=== PATIENT | female | born 1950 | race Caucasian/White ===

== ENCOUNTER 2019-04-03 10:54 | Day surgery (SDC) | payer MEDICARE, MEDICAID ==
[2019-04-01 12:46] LABS: BASOPHILS % (AUTO) 0.4 % (0-1); EOSINOPHILS # (AUTO) 0.1 X10'3 (0-0.9); EOSINOPHILS % (AUTO) 0.9 % (0-6); HEMATOCRIT 39.6 % (35.0-45.0); HEMOGLOBIN 12.7 g/dl (12.0-16.0); LYMPHOCYTES # (AUTO) 1.9 X10'3 (1.1-4.8); LYMPHOCYTES % (AUTO) 30.7 % (21-51); MEAN CORPUSCULAR HGB CONC 32.1 g/dL (33.0-36.5); MEAN CORPUSCULAR VOLUME 87.1 FL (78-98); MEAN PLATELET VOLUME 8.3 FL (7.4-10.4); MONOCYTES # (AUTO) 0.4 X10'3 (0-0.9); MONOCYTES % (AUTO) 7.2 % (2-12); NEUTROPHILS # (AUTO) 3.7 X10'3 (1.8-7.7); NEUTROPHILS % (AUTO) 60.8 % (42-75); PLATELET COUNT 264 X10'3 (140-440); RED BLOOD COUNT 4.54 X10'6 (4.20-5.60); RED CELL DISTRIBUTION WIDTH 17.5 % (11.5-14.5); WHITE BLOOD COUNT 6.1 X10'3 (4.5-11.0)
[2019-04-01 13:08] LABS: PARTIAL THROMBOPLASTIN TIME 31 SECONDS (22-32)
[2019-04-01 13:50] LABS: ALANINE AMINOTRANSFERASE 12 U/L (12-78); ALBUMIN 3.5 G/DL (3.4-5.0); ALBUMIN/GLOBULIN RATIO 0.8 (1.1-1.5); ALKALINE PHOSPHATASE 69 IU/L (46-116); ANION GAP 7 (8-16); ASPARTATE AMINO TRANSFERASE 16 U/L (10-37); BILIRUBIN,TOTAL 0.3 MG/DL (0.1-1.0); BLOOD UREA NITROGEN 20 MG/DL (7-18); BUN/CREATININE RATIO 28.2 (6.6-38.0); CALCIUM 9.2 MG/DL (8.5-10.1); CHLORIDE 101 MMOL/L (99-107); CREATININE 0.71 MG/DL (0.40-0.90); GLUCOSE 131 MG/DL (70-104); POTASSIUM 3.6 MMOL/L (3.5-5.1); SODIUM 139 MMOL/L (135-145); TOTAL CARBON DIOXIDE 30.8 MMOL/L (24-32); TOTAL PROTEIN 7.8 G/DL (6.4-8.2); eGFR 82 ML/MIN
[~2019-04-03] VITALS: Ht 165.1 cm; Wt 78.4 kg
[2019-04-03] VITALS (12 sets, daily range): BP systolic 112–154; BP diastolic 47–75
[2019-04-03] MEDS ORDERED: diphenhydrAMINE 25mg capsule PO PRN (11:15)
[2019-04-03] MEDS ORDERED: LORazepam 0.5 MG tablet PO PRN (11:15)
[2019-04-03] MEDS ORDERED: normal saline 1,000 ML IV SCH (11:15)
[2019-04-03] MEDS ORDERED: nitroGLYCERIN 0.4mg SUBLingual tab SL PRN (11:15)
[2019-04-03] MEDS ORDERED: DILT240C90 PO (11:34)
[2019-04-03] MEDS ORDERED: SYN0.088T PO (11:34)
[2019-04-03] MEDS ORDERED: CLOP75TA15 PO (11:34)
[2019-04-03] MEDS ORDERED: DIVA500T2 PO (11:34)
[2019-04-03] MEDS ORDERED: OMEP40CA13 PO (11:34)
[2019-04-03] MEDS ORDERED: FURO-149 PO (11:34)
[2019-04-03] MEDS ORDERED: ATOR20TA PO (11:34)
[2019-04-03] MEDS ORDERED: APIX5TAB3 PO (11:34)
[2019-04-03] MEDS ORDERED: DILT120C51 PO (11:34)
[2019-04-03] MEDS ORDERED: iohexol 350 MG/ML 50ML vial IV ONE (13:10)
[2019-04-03] MEDS ORDERED: iohexol 350MG/ML 100ml bottle IV ONE (13:10)
[2019-04-03] MEDS ORDERED: midazolam 2 mg/2 ml injection ONE (13:10)
[2019-04-03] MEDS ORDERED: fentaNYL/PF 50MCG/1 ML 2ML syringe ONE (13:10)
[2019-04-03] MEDS ORDERED: LIDOcaine 1% (10mg/ml)w/preservative injection 20ml MDV ONE (13:10)
[2019-04-03] MEDS ORDERED: HYDROcodone/acetaminophen 5mg/325mg tablet PO PRN (14:50)
[2019-04-03] MEDS ORDERED: ondansetron/PF 4mg/2ml inj IV PRN (14:50)
[2019-04-03] MEDS ORDERED: HYDROcodone/acetaminophen 10/325mg tab PO PRN (14:50)
[2019-04-03] MEDS ORDERED: proCHLORperazine 10 MG/2 ml inj IV PRN (14:50)
[2019-04-03] MEDS ORDERED: normal saline 1000ml 1,000 ML IV SCH (14:50)
[2019-04-03] MEDS ORDERED: OXAZEpam 15mg capsule PO PRN (14:50)
[2019-04-03] MEDS ORDERED: heparin sodium, porcine/PF 100unit/ml 5ML syringe IV ONE (19:15)
== END 2019-04-03 20:05 | disposition home or self-care (01) ==
LOC: SSTAY O 10:54
PROVIDERS: ATTEND Internal Medicine Cardiovascular Disease
DX: R94.39 Abnormal result of other cardiovascular function study (principal); I25.10 Atherosclerotic heart disease of native coronary artery without angina pectoris; I10 Essential (primary) hypertension; I48.20 Chronic atrial fibrillation, unspecified; Z88.0 Allergy status to penicillin; Z79.899 Other long term (current) drug therapy
CPT/HCPCS: 36415; 71046; 80053; 85025; 85610; 85730; 93458; 99152; C1769; J1642; J1644; J2001; J2250; J3010; J7030; Q0163; Q9967; 99153; A4620; A6258; C1760

== ENCOUNTER 2024-06-08 15:56 | Inpatient (IN) | payer BC, MEDICAID ==
[~2024-06-08] VITALS: Ht 165.1 cm; Wt 62.3 kg
[~2024-06-08 15:56] MED LIST: APIX5TAB3 PO; ATOR20TA PO; CLOP75TA15 PO; DILT120C51 PO; DILT240C90 PO; DIVA500T2 PO; FURO-149 PO; OMEP40CA21 PO; SYN0.088T PO
[2024-06-08 16:20] LABS: BASOPHILS % (AUTO) 0.3 % (0-1); EOSINOPHILS % (AUTO) 0.2 % (0-6); HEMATOCRIT 42.3 % (35.0-45.0); LYMPHOCYTES # (AUTO) 1.9 X10'3 (1.1-4.8); MEAN CORPUSCULAR HGB CONC 32.8 g/dL (33.0-36.5); MEAN PLATELET VOLUME 10.1 FL (7.4-10.4); MONOCYTES # (AUTO) 0.4 X10'3 (0-0.9); RED BLOOD COUNT 4.51 X10'6 (4.20-5.60)
[2024-06-08 16:22] LABS: HEMOGLOBIN 13.8 g/dl (12.0-16.0); LYMPHOCYTES % (AUTO) 37.5 % (21-51); MEAN CORPUSCULAR HEMOGLOBIN 30.7 PG (27.0-31.0); MEAN CORPUSCULAR VOLUME 93.8 FL (78-98); MONOCYTES % (AUTO) 7.7 % (2-12); NEUTROPHILS # (AUTO) 2.7 X10'3 (1.8-7.7); NEUTROPHILS % (AUTO) 54.3 % (42-75); PLATELET COUNT 150 X10'3 (140-440)
[2024-06-08 16:34] LABS: ALANINE AMINOTRANSFERASE 48 U/L (12-78); ALBUMIN/GLOBULIN RATIO 0.8 (1.1-1.5); ALKALINE PHOSPHATASE 101 IU/L (46-116); ANION GAP 7 (8-16); ASPARTATE AMINO TRANSFERASE 41 U/L (10-37); BILIRUBIN,TOTAL 0.5 MG/DL (0.1-1.0); BLOOD UREA NITROGEN 33 MG/DL (7-18); BUN/CREATININE RATIO 30.3 (10.0-20.0); CALCIUM 8.7 MG/DL (8.5-10.1); CHLORIDE 103 MMOL/L (99-107); CREATININE 1.09 MG/DL (0.40-0.90); GLUCOSE 151 MG/DL (70-104); POTASSIUM 4.3 MMOL/L (3.5-5.1); SODIUM 139 MMOL/L (135-145); TOTAL CARBON DIOXIDE 28.7 MMOL/L (24-32); TOTAL PROTEIN 6.9 G/DL (6.4-8.2); eCRCL 40 ML/MIN; eGFR 49 ML/MIN
[2024-06-08 16:42] LABS: PRO BRAIN NATRIURETIC PEPTIDE 11427 PG/ML (0-450)
[2024-06-08 16:54] LABS: ANISOCYTOSIS 2+; PLATELET ESTIMATE NORMAL
[2024-06-08 16:55] LABS: LARGE PLATELETS FEW
[2024-06-08] MEDS: diltiazem-NS 100mg/100ml 100 ML IV SCH (18:15)
[2024-06-08] MEDS: diltiazem 5mg/ml 5ml inj. IV ONE (19:02)
[2024-06-08] MEDS ORDERED: mag hydrox/Alum hydrox/simeth 30ml oral suspension PO PRN (20:15)
[2024-06-08] MEDS ORDERED: magnesium Cl slow-release 64mg tablet PO PRN (20:15)
[2024-06-08] MEDS ORDERED: acetaminophen 325mg tablet PO PRN ×2 (20:15)
[2024-06-08] MEDS ORDERED: potassium Cl 20 mEq SR tablet PO PRN ×2 (20:15)
[2024-06-08] MEDS ORDERED: magnesium sulf-water 4G/100mL 100 ML IV PRN (20:15)
[2024-06-08] MEDS ORDERED: magnesium hydroxide 30ml (MOM) UD suspension PO PRN (20:15)
[2024-06-08] MEDS ORDERED: potassium Cl 40MEQ/1/2NS 520ml 520 ML IV PRN (20:15)
[2024-06-08] MEDS ORDERED: ondansetron/PF 4mg/2ml inj IV PRN (20:15)
[2024-06-08] MEDS ORDERED: magnesium sulf-water 2g/50mL 50 ML IV PRN (20:15)
[2024-06-08] MEDS ORDERED: morphine 2 MG/ML inj. syringe IV PRN (20:15)
[2024-06-08] MEDS: PERFLUTREN PROTEIN-A MICROSPHR (Optison) 0.22 MG/ML 3ML VIAL IV ONE (20:15)
[2024-06-08 20:49] LABS: HEMOGLOBIN A1C 5.9 % (4.5-6.2)
[2024-06-08] MEDS: mag hydrox/Alum hydrox/simeth 30ml oral suspension PO ONE (21:15)
[2024-06-08] MEDS: metoprolol succinate 25mg (24-HOUR) SR. Tablet PO SCH (21:17)
[2024-06-08] MEDS: furosemide 10 MG/1 ML 10ml inj IV SCH (21:19)
[2024-06-08] MEDS: K and/or MAG REPLACEMENT MC SCH (21:28)
[2024-06-08] MEDS: docusate sod 100mg capsule PO SCH (21:28)
[2024-06-09] MEDS: heparin, porcine 5000 units/ml vial SQ SCH (00:41)
[2024-06-09] MEDS: clopidogrel 75mg tablet PO SCH (02:02)
[2024-06-09] MEDS: normal saline 500ml IV soln 500 ML IV ONE (02:04)
[2024-06-09 02:35] LABS: BILIRUBIN,URINE NEGATIVE (Neg); CLARITY,URINE SLIGHTLY CLOUDY (Clear); COLOR,URINE YELLOW (Yellow); GLUCOSE, URINE NEGATIVE (Neg); KETONES,URINE NEGATIVE (Neg); LEUKOCYTE ESTERASE ,URINE TRACE (Neg); NITRITES, URINE NEGATIVE (Neg); OCCULT BLOOD,URINE NEGATIVE (Neg); PROTEIN,URINE TRACE mg/dl (Neg); UROBILINOGEN,URINE 0.2 E.U/dL (0.2-1.0)
[2024-06-09 02:42] LABS: UA COLLECTION TYPE CLN CATCH MIDSTREAM
[2024-06-09 02:43] LABS: BACTERIA,URINE 2+ /HPF (Neg); RBC,URINE NONE SEEN /HPF (0-2); SQUAMOUS EPITHELIAL CELL,UR FEW /LPF (FEW); WBC,URINE 0-4 /HPF (0-4)
[2024-06-09 02:57] LABS: UA EOSINOPHILS NO EOS /HPF
[2024-06-09] MEDS: morphine 2 MG/ML inj. syringe IV PRN (03:08)
[2024-06-09 03:27] LABS: CHOL/HDL RATIO 16.5 (0.00-4.99); CHOLESTEROL 132 MG/DL (0-200); HDL CHOLESTEROL 8 MG/DL (35-60); POTASSIUM 5.3 MMOL/L (3.5-5.1); TRIGLYCERIDES 121 MG/DL (20-135)
[2024-06-09 04:10] LABS: LDL CHOLESTEROL 55 MG/DL (50-100); MAGNESIUM 1.9 MG/DL (1.5-2.4)
[2024-06-09 06:00] VITALS: BP 111/68; PULSE 113; RESP 17; TEMP 97.6; O2SAT 96
[2024-06-09] MEDS: atorvastatin 20mg tablet PO SCH (08:38)
[2024-06-09 11:00] VITALS: BP 101/60; PULSE 103; RESP 14; TEMP 97.6; O2SAT 94
[2024-06-09] MEDS ORDERED: aminophylline 500mg/20ml vial IV PRN (11:25)
[2024-06-09] MEDS ORDERED: nitroGLYCERIN 0.4mg SUBLingual tab SL PRN (11:25)
[2024-06-09] MEDS ORDERED: metoprolol tartrate 1mg/ml inj IV PRN (11:25)
[2024-06-09 15:00] VITALS: BP 114/63; PULSE 104; RESP 17; TEMP 97.8; O2SAT 96
[2024-06-09 18:00] VITALS: BP 115/72; PULSE 106; RESP 18; TEMP 97.5; O2SAT 96
[2024-06-09] MEDS ORDERED: EMPA10TA PO (19:25)
[2024-06-09] MEDS ORDERED: CARV-50 PO (19:29)
[2024-06-09] MEDS: furosemide 10 MG/1 ML 10ml inj IV SCH (19:41)
[2024-06-09] MEDS: apixaban 5mg tablet PO SCH (19:42)
[2024-06-09] MEDS: sacubitril/valsartan 24mg-26mg tablet PO SCH (19:42)
[2024-06-09 20:00] VITALS: RESP 18; O2SAT 91
[2024-06-09 22:00] VITALS: BP 115/79; PULSE 103; RESP 16; TEMP 97.7; O2SAT 91
[2024-06-10] VITALS (15 sets, daily range): BP systolic 90–167; BP diastolic 56–80; PULSE 70–123; RESP 14–22; TEMP 96.9–97.8; O2SAT 88–98
[2024-06-10 06:53] LABS: BASOPHILS % (AUTO) 0.4 % (0-1); EOSINOPHILS % (AUTO) 0.5 % (0-6); HEMATOCRIT 42.3 % (35.0-45.0); HEMOGLOBIN 13.8 g/dl (12.0-16.0); LYMPHOCYTES # (AUTO) 1.8 X10'3 (1.1-4.8); LYMPHOCYTES % (AUTO) 43.1 % (21-51); MEAN CORPUSCULAR HEMOGLOBIN 30.5 PG (27.0-31.0); MEAN CORPUSCULAR HGB CONC 32.6 g/dL (33.0-36.5); MEAN CORPUSCULAR VOLUME 93.4 FL (78-98); MEAN PLATELET VOLUME 10.2 FL (7.4-10.4); MONOCYTES # (AUTO) 0.5 X10'3 (0-0.9); MONOCYTES % (AUTO) 10.8 % (2-12); NEUTROPHILS # (AUTO) 1.9 X10'3 (1.8-7.7); NEUTROPHILS % (AUTO) 45.2 % (42-75); PLATELET COUNT 127 X10'3 (140-440); RED BLOOD COUNT 4.53 X10'6 (4.20-5.60); RED CELL DISTRIBUTION WIDTH 20.1 % (11.5-14.5); WHITE BLOOD COUNT 4.2 X10'3 (4.5-11.0)
[2024-06-10 07:14] LABS: ALANINE AMINOTRANSFERASE 36 U/L (12-78); ALBUMIN 2.5 G/DL (3.4-5.0); ALBUMIN/GLOBULIN RATIO 0.7 (1.1-1.5); ALKALINE PHOSPHATASE 84 IU/L (46-116); ANION GAP 6 (8-16); ASPARTATE AMINO TRANSFERASE 37 U/L (10-37); BILIRUBIN,TOTAL 0.6 MG/DL (0.1-1.0); BLOOD UREA NITROGEN 31 MG/DL (7-18); BUN/CREATININE RATIO 27.7 (10.0-20.0); CALCIUM 8.2 MG/DL (8.5-10.1); CHLORIDE 102 MMOL/L (99-107); CREATININE 1.12 MG/DL (0.40-0.90); GLUCOSE 95 MG/DL (70-104); MAGNESIUM 1.7 MG/DL (1.5-2.4); POTASSIUM 3.9 MMOL/L (3.5-5.1); SODIUM 139 MMOL/L (135-145); TOTAL CARBON DIOXIDE 31.2 MMOL/L (24-32); TOTAL PROTEIN 6.1 G/DL (6.4-8.2); eCRCL 39 ML/MIN; eGFR 47 ML/MIN
[2024-06-10] MEDS: EMPAGLIFLOZIN 10 MG TABLET PO SCH (08:47)
[2024-06-10] MEDS: regadenoson 0.4mg/5ml syringe IV PRN (11:02)
[2024-06-10] MEDS ORDERED: SACU1TAB PO (16:17)
[2024-06-10] MEDS ORDERED: METO50TA7 PO (16:17)
[2024-06-11 02:00] VITALS: BP 97/67; PULSE 126; RESP 18; TEMP 98; O2SAT 96
[2024-06-11 06:00] VITALS: BP 112/67; PULSE 80; RESP 13; TEMP 98.6; O2SAT 98
[2024-06-11 07:16] LABS: MONOCYTES # (AUTO) 0.7 X10'3 (0-0.9); NEUTROPHILS # (AUTO) 2.4 X10'3 (1.8-7.7); RED BLOOD COUNT 4.65 X10'6 (4.20-5.60)
[2024-06-11 07:20] LABS: BASOPHILS % (AUTO) 0.4 % (0-1); EOSINOPHILS % (AUTO) 0.7 % (0-6); HEMATOCRIT 43.3 % (35.0-45.0); HEMOGLOBIN 14.2 g/dl (12.0-16.0); LYMPHOCYTES # (AUTO) 1.9 X10'3 (1.1-4.8); LYMPHOCYTES % (AUTO) 38.5 % (21-51); MEAN CORPUSCULAR HEMOGLOBIN 30.6 PG (27.0-31.0); MEAN CORPUSCULAR HGB CONC 32.9 g/dL (33.0-36.5); MEAN CORPUSCULAR VOLUME 93.1 FL (78-98); MEAN PLATELET VOLUME 9.9 FL (7.4-10.4); NEUTROPHILS % (AUTO) 47.4 % (42-75); PLATELET COUNT 158 X10'3 (140-440); RED CELL DISTRIBUTION WIDTH 19.8 % (11.5-14.5)
[2024-06-11 08:00] VITALS: RESP 13; O2SAT 98
[2024-06-11] MEDS: metoprolol succinate 25mg (24-HOUR) SR. Tablet PO SCH (08:21)
[2024-06-11 08:44] LABS: ALANINE AMINOTRANSFERASE 31 U/L (12-78); ALBUMIN 2.6 G/DL (3.4-5.0); ALBUMIN/GLOBULIN RATIO 0.8 (1.1-1.5); ALKALINE PHOSPHATASE 83 IU/L (46-116); ANION GAP 10 (8-16); ASPARTATE AMINO TRANSFERASE 25 U/L (10-37); BILIRUBIN,TOTAL 0.5 MG/DL (0.1-1.0); BLOOD UREA NITROGEN 32 MG/DL (7-18); BUN/CREATININE RATIO 34.4 (10.0-20.0); CALCIUM 8.7 MG/DL (8.5-10.1); CHLORIDE 105 MMOL/L (99-107); CREATININE 0.93 MG/DL (0.40-0.90); POTASSIUM 3.6 MMOL/L (3.5-5.1); SODIUM 143 MMOL/L (135-145); TOTAL CARBON DIOXIDE 28.2 MMOL/L (24-32); eCRCL 47 ML/MIN; eGFR 59 ML/MIN
[2024-06-11 09:58] LABS: GLUCOSE 111 MG/DL (70-104); MAGNESIUM 1.7 MG/DL (1.5-2.4)
[2024-06-11] MEDS ORDERED: METO-384 PO (11:15)
== END 2024-06-11 13:45 | disposition home health service (06) | DRG 291 ==
LOC: ER 15:57 → ED HOLD 19:51 → PCU 3S 06-09 06:51
PROVIDERS: ADMIT Surgery; ATTEND Family Medicine
PROC: 4A02XM4 Measurement of Cardiac Total Activity, External Approach (ICD-10-PCS; principal; 2024-06-10)
PROC: 3E033HZ Introduction of Radioactive Substance into Peripheral Vein, Percutaneous Approach (ICD-10-PCS; 2024-06-10)
DX: I13.0 Hypertensive heart and chronic kidney disease with heart failure and stage 1 through stage 4 chronic kidney disease, or unspecified chronic kidney disease (principal); I50.23 Acute on chronic systolic (congestive) heart failure; N17.0 Acute kidney failure with tubular necrosis; I48.20 Chronic atrial fibrillation, unspecified; Z66 Do not resuscitate; Z20.822 Contact with and (suspected) exposure to COVID-19; E03.9 Hypothyroidism, unspecified; E78.5 Hyperlipidemia, unspecified; G62.9 Polyneuropathy, unspecified; N18.30 Chronic kidney disease, stage 3 unspecified; I49.9 Cardiac arrhythmia, unspecified; G40.909 Epilepsy, unspecified, not intractable, without status epilepticus; I25.10 Atherosclerotic heart disease of native coronary artery without angina pectoris; F03.90 Unspecified dementia, unspecified severity, without behavioral disturbance, psychotic disturbance, mood disturbance, and anxiety; Z85.3 Personal history of malignant neoplasm of breast; Z86.73 Personal history of transient ischemic attack (TIA), and cerebral infarction without residual deficits; Z87.891 Personal history of nicotine dependence; Z79.01 Long term (current) use of anticoagulants; Z79.899 Other long term (current) drug therapy; Z88.0 Allergy status to penicillin
CPT/HCPCS: 36415; 71045; 78452; 80053; 80061; 81001; 82570; 83036; 83735; 83880; 83930; 83935; 84132; 84300; 84484; 85008; 85025; 87081; 87088; 87207; 87502; 87503; 87811; 93005; 93017; 93306; 97116; 97161; 97530; 99285; A4615; A9500; G0378; J1644; J1940; J2270; J2785; J3490; J7040

== ENCOUNTER 2024-06-17 16:27 | Inpatient (IN) | payer BC, MEDICAID ==
[~2024-06-17] VITALS: Ht 165.1 cm; Wt 63.6 kg
[~2024-06-17 16:27] MED LIST changes: -DILT120C51 PO; -DILT240C90 PO; +EMPA10TA PO; +METO-384 PO; +SACU1TAB PO
[2024-06-17] MEDS: metoprolol tartrate 1mg/ml inj IV ONE ×2 (17:09→17:35)
[2024-06-17 17:17] LABS: BASOPHILS % (AUTO) 0.6 % (0-1); EOSINOPHILS % (AUTO) 0.2 % (0-6); HEMATOCRIT 49.1 % (35.0-45.0); HEMOGLOBIN 16.2 g/dl (12.0-16.0); LYMPHOCYTES # (AUTO) 2.3 X10'3 (1.1-4.8); LYMPHOCYTES % (AUTO) 33.8 % (21-51); MEAN PLATELET VOLUME 9.5 FL (7.4-10.4); MONOCYTES # (AUTO) 0.6 X10'3 (0-0.9); MONOCYTES % (AUTO) 9.4 % (2-12); NEUTROPHILS # (AUTO) 3.8 X10'3 (1.8-7.7); PLATELET COUNT 167 X10'3 (140-440); RED BLOOD COUNT 5.23 X10'6 (4.20-5.60); RED CELL DISTRIBUTION WIDTH 19.5 % (11.5-14.5); WHITE BLOOD COUNT 6.8 X10'3 (4.5-11.0)
[2024-06-17 17:35] LABS: ALANINE AMINOTRANSFERASE 21 U/L (12-78); ALBUMIN 3.5 G/DL (3.4-5.0); ALBUMIN/GLOBULIN RATIO 0.7 (1.1-1.5); ALKALINE PHOSPHATASE 92 IU/L (46-116); ANION GAP 9 (8-16); ASPARTATE AMINO TRANSFERASE 27 U/L (10-37); BILIRUBIN,TOTAL 0.9 MG/DL (0.1-1.0); BLOOD UREA NITROGEN 16 MG/DL (7-18); CALCIUM 9.2 MG/DL (8.5-10.1); CHLORIDE 97 MMOL/L (99-107); CREATININE 1.07 MG/DL (0.40-0.90); GLUCOSE 112 MG/DL (70-104); SODIUM 135 MMOL/L (135-145); TOTAL CARBON DIOXIDE 29.4 MMOL/L (24-32); TOTAL PROTEIN 8.4 G/DL (6.4-8.2); eCRCL 41 ML/MIN; eGFR 50 ML/MIN
[2024-06-17 17:36] LABS: ANISOCYTOSIS 2+; ELLIPTOCYTES FEW; PLATELET ESTIMATE NORMAL
[2024-06-17 17:44] LABS: MAGNESIUM 1.9 MG/DL (1.5-2.4); PRO BRAIN NATRIURETIC PEPTIDE 14532 PG/ML (0-450)
[2024-06-17] MEDS: metoprolol tartrate 50mg tablet PO ONE (17:46)
[2024-06-17 17:47] LABS: POTASSIUM 4.1 MMOL/L (3.5-5.1)
[2024-06-17] MEDS: digoxin 250mcg/ml 2ml ampule IV ONE (18:07)
[2024-06-17] MEDS: diltiazem 5mg/ml 5ml inj. IV ONE (18:51)
[2024-06-17] MEDS ORDERED: mag hydrox/Alum hydrox/simeth 30ml oral suspension PO PRN (20:20)
[2024-06-17] MEDS ORDERED: acetaminophen 325mg tablet PO PRN (20:20)
[2024-06-17] MEDS ORDERED: potassium Cl 40MEQ/1/2NS 520ml 520 ML IV PRN (20:20)
[2024-06-17] MEDS ORDERED: HYDROcodone/acetaminophen 5mg/325mg tablet PO PRN (20:20)
[2024-06-17] MEDS ORDERED: magnesium hydroxide 30ml (MOM) UD suspension PO PRN (20:20)
[2024-06-17] MEDS ORDERED: ondansetron/PF 4mg/2ml inj IV PRN (20:20)
[2024-06-17] MEDS ORDERED: potassium Cl 20 mEq SR tablet PO PRN ×2 (20:20)
[2024-06-17] MEDS ORDERED: magnesium sulf-water 2g/50mL 50 ML IV PRN (20:20)
[2024-06-17] MEDS ORDERED: magnesium sulf-water 4G/100mL 100 ML IV PRN (20:20)
[2024-06-17] MEDS ORDERED: morphine 2 MG/ML inj. syringe IV PRN (20:20)
[2024-06-17] MEDS ORDERED: magnesium Cl slow-release 64mg tablet PO PRN (20:20)
[2024-06-17] MEDS: furosemide 10 MG/1 ML 10ml inj IV ONE (21:28)
[2024-06-17] MEDS: atorvastatin 20mg tablet PO SCH (21:28)
[2024-06-17 21:39] LABS: THYROID STIMULATING HORMONE 1.16 ulU/ml (0.34-4.50)
[2024-06-18] MEDS: CefTRIAXone/D5W-Rocephin 1gm 50 ML IV SCH (01:32)
[2024-06-18 02:21] LABS: BASOPHILS % (AUTO) 0.4 % (0-1)
[2024-06-18 02:24] LABS: EOSINOPHILS # (AUTO) 0.1 X10'3 (0-0.9); EOSINOPHILS % (AUTO) 1.1 % (0-6); HEMATOCRIT 44.5 % (35.0-45.0); HEMOGLOBIN 14.5 g/dl (12.0-16.0); LYMPHOCYTES # (AUTO) 1.8 X10'3 (1.1-4.8); LYMPHOCYTES % (AUTO) 37.4 % (21-51); MEAN CORPUSCULAR HEMOGLOBIN 30.5 PG (27.0-31.0); MEAN CORPUSCULAR HGB CONC 32.6 g/dL (33.0-36.5); MEAN CORPUSCULAR VOLUME 93.4 FL (78-98); MEAN PLATELET VOLUME 9.3 FL (7.4-10.4); MONOCYTES # (AUTO) 0.4 X10'3 (0-0.9); MONOCYTES % (AUTO) 9.4 % (2-12); NEUTROPHILS # (AUTO) 2.4 X10'3 (1.8-7.7); NEUTROPHILS % (AUTO) 51.7 % (42-75); PLATELET COUNT 156 X10'3 (140-440); RED BLOOD COUNT 4.76 X10'6 (4.20-5.60); RED CELL DISTRIBUTION WIDTH 18.8 % (11.5-14.5); WHITE BLOOD COUNT 4.7 X10'3 (4.5-11.0)
[2024-06-18 02:32] LABS: ALBUMIN 2.8 G/DL (3.4-5.0); ANION GAP 4 (8-16); BLOOD UREA NITROGEN 16 MG/DL (7-18); BUN/CREATININE RATIO 16.2 (10.0-20.0); CALCIUM 8.7 MG/DL (8.5-10.1); CHLORIDE 97 MMOL/L (99-107); CREATININE 0.99 MG/DL (0.40-0.90); GLUCOSE 133 MG/DL (70-104); MAGNESIUM 2.4 MG/DL (1.5-2.4); POTASSIUM 3.9 MMOL/L (3.5-5.1); SODIUM 136 MMOL/L (135-145); TOTAL CARBON DIOXIDE 34.9 MMOL/L (24-32); eCRCL 44 ML/MIN; eGFR 55 ML/MIN
[2024-06-18 07:00] VITALS: BP 109/58; PULSE 73; RESP 19; TEMP 97.6; O2SAT 97
[2024-06-18] MEDS: K and/or MAG REPLACEMENT MC SCH (08:00)
[2024-06-18] MEDS ORDERED: heparin, porcine 5000 units/ml vial SQ SCH (08:00)
[2024-06-18] MEDS: docusate sod 100mg capsule PO SCH (08:18)
[2024-06-18] MEDS: divalproex sodium 500mg tablet.DR PO SCH (08:18)
[2024-06-18] MEDS: metoprolol succinate 25mg (24-HOUR) SR. Tablet PO SCH (08:19)
[2024-06-18] MEDS: levoTHYROXINE 100mcg tablet PO SCH (08:19)
[2024-06-18] MEDS: EMPAGLIFLOZIN 10 MG TABLET PO SCH (08:19)
[2024-06-18] MEDS: sacubitril/valsartan 24mg-26mg tablet PO SCH (08:19)
[2024-06-18] MEDS: clopidogrel 75mg tablet PO SCH (08:20)
[2024-06-18] MEDS: apixaban 5mg tablet PO SCH (08:20)
[2024-06-18] MEDS: furosemide 10 MG/1 ML 10ml inj IV SCH (08:53)
[2024-06-18 11:00] VITALS: BP 96/58; PULSE 71; RESP 16; TEMP 97.7; O2SAT 98
[2024-06-18 15:00] VITALS: BP 89/60; PULSE 63; RESP 18; TEMP 97.7; O2SAT 98
[2024-06-18 18:00] VITALS: BP 111/64; PULSE 133; RESP 23; TEMP 97.9; O2SAT 94
[2024-06-18 20:00] VITALS: BP_SYST 100; BP_SYST 111; BP_DIAS 81; BP_DIAS 85; BP_DIAS 89; PULSE 112; PULSE 120; PULSE 133; RESP 21; O2SAT 95
[2024-06-18 22:00] VITALS: BP 90/56; PULSE 89; RESP 18; TEMP 97.6; O2SAT 90
[2024-06-19 02:00] VITALS: BP 94/58; PULSE 55; RESP 20; TEMP 97.1; O2SAT 93
[2024-06-19 06:00] VITALS: BP 102/60; PULSE 63; RESP 23; TEMP 98; O2SAT 95
[2024-06-19 07:10] LABS: ALBUMIN 2.4 G/DL (3.4-5.0); ANION GAP 7 (8-16); BLOOD UREA NITROGEN 29 MG/DL (7-18); BUN/CREATININE RATIO 30.9 (10.0-20.0); CALCIUM 8.6 MG/DL (8.5-10.1); CHLORIDE 98 MMOL/L (99-107); CREATININE 0.94 MG/DL (0.40-0.90); GLUCOSE 105 MG/DL (70-104); MAGNESIUM 1.7 MG/DL (1.5-2.4); POTASSIUM 3.6 MMOL/L (3.5-5.1); SODIUM 135 MMOL/L (135-145); TOTAL CARBON DIOXIDE 30.3 MMOL/L (24-32); eCRCL 47 ML/MIN; eGFR 58 ML/MIN
[2024-06-19 07:28] LABS: HEMOGLOBIN 15.1 g/dl (12.0-16.0); MEAN PLATELET VOLUME 9.5 FL (7.4-10.4); RED BLOOD COUNT 4.92 X10'6 (4.20-5.60); RED CELL DISTRIBUTION WIDTH 18.8 % (11.5-14.5)
[2024-06-19 07:30] LABS: BASOPHILS % (AUTO) 0.5 % (0-1); EOSINOPHILS # (AUTO) 0.1 X10'3 (0-0.9); EOSINOPHILS % (AUTO) 1.1 % (0-6); HEMATOCRIT 45.6 % (35.0-45.0); LYMPHOCYTES # (AUTO) 1.9 X10'3 (1.1-4.8); LYMPHOCYTES % (AUTO) 39.5 % (21-51); MEAN CORPUSCULAR HEMOGLOBIN 30.7 PG (27.0-31.0); MEAN CORPUSCULAR HGB CONC 33.1 g/dL (33.0-36.5); MEAN CORPUSCULAR VOLUME 92.7 FL (78-98); MONOCYTES # (AUTO) 0.6 X10'3 (0-0.9); MONOCYTES % (AUTO) 11.8 % (2-12); NEUTROPHILS # (AUTO) 2.3 X10'3 (1.8-7.7); NEUTROPHILS % (AUTO) 47.1 % (42-75); PLATELET COUNT 152 X10'3 (140-440); WHITE BLOOD COUNT 4.9 X10'3 (4.5-11.0)
[2024-06-19 08:00] VITALS: BP_SYST 102; BP_SYST 108; BP_SYST 96; BP_DIAS 60; BP_DIAS 62; BP_DIAS 78; PULSE 133; PULSE 78; PULSE 88; RESP 23; O2SAT 95
[2024-06-19 11:00] VITALS: BP 98/58; PULSE 82; RESP 21; TEMP 97.9; O2SAT 96
[2024-06-19] MEDS ORDERED: FURO20TA4 PO (11:56)
== END 2024-06-19 15:50 | disposition home or self-care (01) | DRG 308 ==
LOC: ER 16:28 → ED HOLD 19:15 → EDBEDREQDT 06-18 02:38 → EDBEDREQTM 06-18 02:38 → PCU 3S 06-18 03:23
PROVIDERS: ADMIT Internal Medicine Pulmonary Disease; ATTEND Internal Medicine
DX: I48.91 Unspecified atrial fibrillation (principal); J18.9 Pneumonia, unspecified organism; N17.0 Acute kidney failure with tubular necrosis; I24.89 Other forms of acute ischemic heart disease; I50.22 Chronic systolic (congestive) heart failure; R65.10 Systemic inflammatory response syndrome (SIRS) of non-infectious origin without acute organ dysfunction; N18.32 Chronic kidney disease, stage 3b; E78.5 Hyperlipidemia, unspecified; E03.9 Hypothyroidism, unspecified; I25.10 Atherosclerotic heart disease of native coronary artery without angina pectoris; Z79.01 Long term (current) use of anticoagulants; Z86.73 Personal history of transient ischemic attack (TIA), and cerebral infarction without residual deficits; Z79.899 Other long term (current) drug therapy; I25.2 Old myocardial infarction; Z95.0 Presence of cardiac pacemaker; Z88.0 Allergy status to penicillin; Z85.3 Personal history of malignant neoplasm of breast
CPT/HCPCS: 36415; 71045; 71250; 80048; 80053; 83735; 83880; 84132; 84145; 84443; 84484; 85008; 85025; 87081; 93005; 99285; A6258; G0378; J0696; J1160; J1940; J3490; J7040

== ENCOUNTER 2024-06-25 12:08 | Emergency (ER) | payer BC, MEDICAID ==
[~2024-06-25] VITALS: Ht 165.1 cm; Wt 77.0 kg
[~2024-06-25 12:08] MED LIST changes: -FURO-149 PO; +FURO20TA4 PO
[2024-06-25 12:32] VITALS: TEMP 97.3
[2024-06-25 13:24] LABS: BASOPHILS % (AUTO) 0.4 % (0-1); EOSINOPHILS % (AUTO) 0.5 % (0-6); HEMATOCRIT 39.1 % (35.0-45.0); HEMOGLOBIN 12.8 g/dl (12.0-16.0); LYMPHOCYTES % (AUTO) 38.6 % (21-51); MEAN CORPUSCULAR HEMOGLOBIN 30.7 PG (27.0-31.0); MEAN CORPUSCULAR HGB CONC 32.6 g/dL (33.0-36.5); MEAN CORPUSCULAR VOLUME 94.1 FL (78-98); MEAN PLATELET VOLUME 9.4 FL (7.4-10.4); MONOCYTES # (AUTO) 0.5 X10'3 (0-0.9); MONOCYTES % (AUTO) 10.1 % (2-12); NEUTROPHILS # (AUTO) 2.6 X10'3 (1.8-7.7); NEUTROPHILS % (AUTO) 50.4 % (42-75); PLATELET COUNT 149 X10'3 (140-440); RED BLOOD COUNT 4.15 X10'6 (4.20-5.60); RED CELL DISTRIBUTION WIDTH 18.8 % (11.5-14.5); WHITE BLOOD COUNT 5.1 X10'3 (4.5-11.0)
[2024-06-25 13:47] LABS: ALANINE AMINOTRANSFERASE 14 U/L (12-78); ALBUMIN 2.5 G/DL (3.4-5.0); ALBUMIN/GLOBULIN RATIO 0.7 (1.1-1.5); ALKALINE PHOSPHATASE 68 IU/L (46-116); ANION GAP 8 (8-16); ASPARTATE AMINO TRANSFERASE 26 U/L (10-37); BILIRUBIN,TOTAL 0.4 MG/DL (0.1-1.0); BLOOD UREA NITROGEN 17 MG/DL (7-18); BUN/CREATININE RATIO 25.4 (10.0-20.0); CALCIUM 8.1 MG/DL (8.5-10.1); CHLORIDE 110 MMOL/L (99-107); CREATININE 0.67 MG/DL (0.40-0.90); GLUCOSE 77 MG/DL (70-104); SODIUM 145 MMOL/L (135-145); TOTAL CARBON DIOXIDE 27.2 MMOL/L (24-32); TOTAL PROTEIN 6.3 G/DL (6.4-8.2); eCRCL 65 ML/MIN; eGFR 86 ML/MIN
[2024-06-25 13:53] LABS: PRO BRAIN NATRIURETIC PEPTIDE 6649 PG/ML (0-450)
[2024-06-25 16:09] VITALS: BP 108/86; PULSE 89; RESP 17; O2SAT 97
== END 2024-06-25 16:13 | disposition home or self-care (01) ==
LOC: ER 12:09
DX: I48.91 Unspecified atrial fibrillation (principal); I50.20 Unspecified systolic (congestive) heart failure; Z88.0 Allergy status to penicillin; Z79.899 Other long term (current) drug therapy
CPT/HCPCS: 71045; 80053; 83880; 84484; 85025; 93005; 99285

== ENCOUNTER 2024-09-15 12:59 | Emergency (ER) | payer BC, MEDICAID ==
[~2024-09-15] VITALS: Ht 165.1 cm; Wt 63.6 kg
[2024-09-15 13:13] VITALS: TEMP 97.6
--- NOTE | 2024-09-15 13:21 | Physician Documentation ---
History of Present Illness ~ Chief Complaint: Palpitations Stated Complaint: HIGH HEART RATE Time Seen by MD: 14:32 OK to notify your PCP?: Yes Primary Medical Doctor: none Source: patient Mode of Arrival: POV Exam Limitations: no limitations HPI 84-year-old female presents today with concerns over elevated heart rate. Patient does have a history of atrial fibrillation and was recently at [facility] for an extended period after receiving the pacemaker placed by Dr. Barnard one month ago.. Denies any chest pain reports increased shortness of breath and weakness Medication Reconciliation Allergies: Coded Allergies: Penicillins (Verified Allergy, Unknown, 09/15/24) Scheduled Apixaban (Eliquis), 1 TAB PO Q12H, (Reported) Atorvastatin Calcium* (Lipitor*), 1 TABLET PO HS, (Reported) Clopidogrel Bisulfate (Plavix), 75 MG PO DAILY, (Reported) Divalproex Sodium (Depakote), 1 TABLET PO BID, (Reported) Empagliflozin (Jardiance), 1 TAB PO DAILY, (Reported) Furosemide (Furosemide), 1 TAB PO DAILY Levothyroxine Sodium* (Synthroid*), 100 MCG PO DAILY, (Reported) Metoprolol Succinate (Metoprolol Succinate), 1 TAB PO BID Omeprazole (Prilosec), 1 CAP PO DAILY, (Reported) Sacubitril/Valsartan (Entresto 24 mg-26 mg Tablet), 1 TABLET PO BID Past Medical History Patient History: FH: heart attack Alcohol Use: None Drug Use: none Lives with: Alone Lives In: Home Physical Exam Vital Signs: Temperature: 97.6, Source: Temporal, Heart Rate: 127, Respiratory Rate: 18, BP: 118/82, Pulse Oximetry: 98, Weight: 63.640 Physical Exam General: Alert Respiratory: Lungs clear, no respiratory distress. Extremities: Normal range of motion, no deformity. Neurologic: Oriented x4. Psychiatric: Normal mood and affect. Skin: Pale Respiratory No accessory muscle use or retractions. Lungs are clear to auscultation in all crespo Cardiovascular No rubs, gallops or murmurs. No peripheral edema, cyanosis or clubbing of the extremities Neurologic: oriented x4, paleobotanist II-XII nml as tested, memory intact Progress Results/Orders Results/Orders Orders - GREGORY CEDENO General Nursing Order (09/15/24 ) Completed Orders - GREGORY CEDENO Lidocaine/Epi/Tetracaine Top (Lidocaine/ (09/15/24 15:25) Metoprolol Tartrate Inj (Lopressor Iv) (09/15/24 16:35) Diltiazem Iv (Cardizem Iv 5mg/Ml Inj.) (09/15/24 17:10) Medications Received in ER Medications (Trade) Dose Ordered Sig/Lukasz Route PRN Reason Start Time Stop Time Status Last Admin Dose Admin (LIDOcaine/ epiNEPH/ tetracaine top sandip 3ml SYR) 5 ml ONCE ONCE TOP 09/15/24 15:25 09/15/24 15:27 DC 09/15/24 15:25 5 ML (Lopressor IV) 5 mg ONCE ONCE IV 09/15/24 16:35 09/15/24 16:36 DC 09/15/24 16:46 5 MG (Cardizem IV 5mg/ ml inj.) 10 mg ONCE ONCE IV 09/15/24 17:10 09/15/24 17:11 DC 09/15/24 17:34 10 MG Vital Signs 09/15/24 09/15/24 09/15/24 09/15/24 13:13 14:42 16:46 17:03 Temp 97.6 Pulse 127 126 120 Resp 18 18 B/P (MAP) 118/82 112/75 (87) Pulse Ox 98 98 O2 Flow Rate 0 09/15/24 17:34 Pulse 120 B/P (MAP) 115/82 Laboratory Tests Test 09/15/24 14:17 09/15/24 16:07 White Blood Count 6.6 Red Blood Count 4.71 Hemoglobin 12.3 Hematocrit 39.1 Mean Corpuscular Volume 83.1 Mean Corpuscular Hemoglobin 26.1 L Mean Corpuscular Hemoglobin Concent 31.4 L Red Cell Distribution Width 24.2 H Platelet Count 261 Mean Platelet Volume 8.5 Neutrophils (%) (Auto) 56.1 Lymphocytes (%) (Auto) 36.6 Monocytes (%) (Auto) 6.4 Eosinophils (%) (Auto) 0.3 Basophils (%) (Auto) 0.6 Neutrophils # (Auto) 3.7 Lymphocytes # (Auto) 2.4 Monocytes # (Auto) 0.4 Eosinophils # (Auto) 0.0 Basophils # (Auto) 0.0 CBC Comment Platelet Estimate Normal Red Blood Cell Morphology Perf Hypochromasia 1+ Basophilic Stippling Anisocytosis 3+ Tear Drop Cells Few Elliptocytes Few Sodium Level 140 Potassium Level 4.1 Chloride Level 101 Carbon Dioxide Level 32.1 H Anion Gap 7 L Blood Urea Nitrogen 27 H Creatinine 0.95 H Estimated GFR/1.73 m2 57 BUN/Creatinine Ratio 28.4 H Glucose Level 110 H Calcium Level 8.8 Total Bilirubin 0.3 Aspartate Amino Transf (AST/SGOT) 16 Alanine Aminotransferase (ALT/SGPT) 14 Alkaline Phosphatase 75 Troponin I High Sensitivity 18 18 Pro-B-Type Natriuretic Peptide 65948 H Total Protein 7.9 Albumin 3.2 L Globulin 4.7 H Albumin/Globulin Ratio 0.7 L Chemistry Comments Troponin I High Sens Percent Delta 0 Troponin I Hi Sens Absolute Change 0 EKG/XRAY/CT/US/VASC/MRI EKG : Intepreting Monitor?: No Additional Comment Twelve lead EKGs interpreted by me: Atrial ventricular dual place complex with some inhibition of the complexes also detect with a rate of 128. No further analysis attempted due to paced rhythm. Baseline wander and leads V2. Chest X-Ray : Interpreted By: self Additional Comments Chest x-ray one view interpreted by me: No acute disease process. The cardiac silhouette and lung crespo are appropriate. No obvious bony abnormalities. Soft tissues are unremarkable Medical Decision Making Findings Prior to giving the patient any medications to control her rate I spoke with Dr. Rosemary Barnard who stated that if she was asymptomatic and otherwise stable try to get the rate under control and have her follow up in the office. The patient was with a caregiver who states that she can probably follow up with Dr. Morocho tomorrow. I initially gave the patient 5 mg IV metoprolol in her rate has been in the one teens to 120s. I gave 10 mg IV Cardizem in her rate persisted with the same. The patient was remains asymptomatic and clinically he was very well- appearing and stable. I discussed options with the patient and with the patient was caregiver and we feel comfortable letting her go home to follow up with Dr. Barnard in the morning. If there was any issues between now and then they can return to the ER. Additional Information Tachycardic. Atrial fibrillation. Departure Disposition: HOME / SELF CARE / HOMELESS Impression: Primary Impression: Atrial fibrillation Additional Impression: Tachycardia Condition: Stable Discharge Instructions: Atrial Fibrillation, [id number] Additional Instructions: Follow up with Dr. Morocho in his office tomorrow. If you have any issues between now and then such as palpitations, shortness of breath, dizziness, chest pain or any concerns you can return to the ER. Referrals: NO PRIMARY CARE PROVIDER (PCP) Signature Scribe Signature: g Attestation: The note accurately reflects work and decisions made by me.Vita Davey NP 09/15/24 16:25 VITA GREENBERG NP Sep 15, 2024 13:21 GREGORY CEDENO Sep 15, 2024 15:35
--- NOTE | 2024-09-15 13:45 | RADIOLOGY REPORT ---
CHEST RADIOGRAPH Indication: CP Technique: Single frontal view of the chest was obtained Comparison: DI CHEST,SINGLE VIEW on DOS: 06/25/24, DI CHEST,SINGLE VIEW on DOS: 06/17/24, DI CHEST,SINGL E VIEW on DOS: 06/08/24 FINDINGS: Lines and Tubes: Right IJ approach port-A-Cath terminating over the superior cavoatrial junction. Le ft-sided approach dual lead pacemaker terminating within right atrium and right ventricle. Lungs: No focal consolidation. Pleura: No effusion. No pneumothorax. Cardiomediastinal contours: Heart size is within normal limits with moderate atherosclerotic calcific ation and uncoiling of the aorta. Bones: No acute osseous abnormality. IMPRESSION: No acute cardiopulmonary disease.
--- NOTE | 2024-09-15 14:17 | ELECTROCARDIOGRAPH REPORT ---
[facility] Test Date: 2024-09-15 Test Time: 13:19:31 Pat Name: JOSHUA WAKEFIELD Department: EMERGENCY ROOM Room: Gender: F Oven Loader: CARLOS : 1950 Requested By: VITA GREENBERG Order Number: [id number] Reading MD: Dr. José Huang Measurements Intervals [place] Rate: 128 P: 0 TX: 40 QRS: -35 QRSD: 189 T: 151 QT: 404 QTc: 590 Interpretive Statements A-V dual-paced complexes w/ some inhibition No further analysis attempted due to paced rhythm Baseline wander in lead(s) V2 Electronically Signed On 09-15-2024 19:01:[address] José Huang Please click the below link to view image of tracing.
[2024-09-15 14:26] LABS: BASOPHILS % (AUTO) 0.6 % (0-1); EOSINOPHILS % (AUTO) 0.3 % (0-6); HEMATOCRIT 39.1 % (35.0-45.0); HEMOGLOBIN 12.3 g/dl (12.0-16.0); LYMPHOCYTES # (AUTO) 2.4 X10'3 (1.1-4.8); LYMPHOCYTES % (AUTO) 36.6 % (21-51); MEAN CORPUSCULAR HEMOGLOBIN 26.1 PG (27.0-31.0); MEAN CORPUSCULAR HGB CONC 31.4 g/dL (33.0-36.5); MEAN CORPUSCULAR VOLUME 83.1 FL (78-98); MEAN PLATELET VOLUME 8.5 FL (7.4-10.4); MONOCYTES # (AUTO) 0.4 X10'3 (0-0.9); MONOCYTES % (AUTO) 6.4 % (2-12); NEUTROPHILS # (AUTO) 3.7 X10'3 (1.8-7.7); NEUTROPHILS % (AUTO) 56.1 % (42-75); PLATELET COUNT 261 X10'3 (140-440); RED BLOOD COUNT 4.71 X10'6 (4.20-5.60); RED CELL DISTRIBUTION WIDTH 24.2 % (11.5-14.5); WHITE BLOOD COUNT 6.6 X10'3 (4.5-11.0)
[2024-09-15 14:43] LABS: ANISOCYTOSIS 3+; HYPOCHROMASIA 1+; PLATELET ESTIMATE NORMAL
[2024-09-15 14:44] LABS: ELLIPTOCYTES FEW; TEAR DROP CELLS FEW
[2024-09-15 14:52] LABS: ALANINE AMINOTRANSFERASE 14 U/L (12-78); ALBUMIN 3.2 G/DL (3.4-5.0); ALBUMIN/GLOBULIN RATIO 0.7 (1.1-1.5); ALKALINE PHOSPHATASE 75 IU/L (46-116); ANION GAP 7 (8-16); ASPARTATE AMINO TRANSFERASE 16 U/L (10-37); BILIRUBIN,TOTAL 0.3 MG/DL (0.1-1.0); BLOOD UREA NITROGEN 27 MG/DL (7-18); BUN/CREATININE RATIO 28.4 (10.0-20.0); CALCIUM 8.8 MG/DL (8.5-10.1); CHLORIDE 101 MMOL/L (99-107); CREATININE 0.95 MG/DL (0.40-0.90); GLUCOSE 110 MG/DL (70-104); POTASSIUM 4.1 MMOL/L (3.5-5.1); SODIUM 140 MMOL/L (135-145); TOTAL CARBON DIOXIDE 32.1 MMOL/L (24-32); TOTAL PROTEIN 7.9 G/DL (6.4-8.2); eCRCL 46 ML/MIN; eGFR 57 ML/MIN
[2024-09-15 14:59] LABS: PRO BRAIN NATRIURETIC PEPTIDE 14925 PG/ML (0-450)
[2024-09-15] MEDS: LIDOcaine/epinephrine/tetracaine TOPICAL sol 3 ML syringe TOP ONE (15:25)
[2024-09-15] MEDS: metoprolol tartrate 1mg/ml inj IV ONE (16:46)
[2024-09-15] MEDS: diltiazem 5mg/ml 5ml inj. IV ONE (17:34)
[2024-09-15 18:40] VITALS: BP 128/84; PULSE 120; RESP 19; O2SAT 98
[2024-09-15] MEDS: heparin sodium, porcine/PF 100unit/ml 5ML syringe IV ONE (19:03)
== END 2024-09-15 19:17 | disposition home or self-care (01) ==
LOC: ER 13:00
DX: I48.91 Unspecified atrial fibrillation (principal); Z88.0 Allergy status to penicillin; Z95.0 Presence of cardiac pacemaker
CPT/HCPCS: 36415; 71045; 80053; 83880; 84484; 85025; 93005; 96374; 96375; 99285; J1642; J3490; 85008; A6258; A6402